=== PATIENT | male | born 1950 | race Caucasian/White ===

== ENCOUNTER 2018-06-14 19:27 | Observation (INO) | payer OTHER, MEDICARE ==
[~2018-06-14] VITALS: Ht 162.6 cm; Wt 92.5 kg
[~2018-06-14 19:27] MED LIST: AMIODARONE HCL200 MG PO; BYSTOLIC10 MG PO; PANTOPRAZOLE SO40 MG PO; XARELTO20 MG PO
[2018-06-14] MEDS ORDERED: METOPROLOL TARTRATE INJ 1 MG/ML VIAL IV PRN (19:45)
[2018-06-14 20:02] LABS: BASOPHILS # (AUTO) 0.1 (0.0-0.1); BASOPHILS % 0.7 % (0.0-1.0); EOSINOPHILS # (AUTO) 0.2 (0.0-0.4); EOSINOPHILS % 1.8 % (0.0-6.0); HEMATOCRIT 51.6 % (38.2-49.6); HEMOGLOBIN 17.5 g/dL (14.0-18.0); LYMPHOCYTES # (AUTO) 3.6 (1.0-3.2); LYMPHOCYTES % 41.8 % (18.0-39.1); MEAN CORPUSCULAR HEMOGLOBIN 31.5 pg (28-32); MEAN CORPUSCULAR HGB CONC 33.9 g/dL (31-35); MONOCYTES # (AUTO) 0.8 (0.2-0.8); MONOCYTES % 9.3 % (4.4-11.3); NEUTROPHILS # (AUTO) 3.9 (2.1-6.9); NEUTROPHILS % 45.9 % (38.7-80.0); PLATELET COUNT 230 x10e3/uL (140-360); RED BLOOD COUNT 5.55 x10e6/uL (4.3-5.7); RED CELL DISTRIBUTION WIDTH 13.2 % (11.7-14.4)
[2018-06-14] MEDS ORDERED: METOPROLOL SUCC50 MG PO (20:04)
[2018-06-14] MEDS ORDERED: DILTIAZEM HCL30 MG PO (20:04)
[2018-06-14] MEDS ORDERED: LOSARTAN POTASS50 MG PO (20:04)
[2018-06-14] MEDS ORDERED: XARELTO15 MG PO (20:04)
[2018-06-14] MEDS ORDERED: TIKOSYN125 MCG PO (20:04)
[2018-06-14] MEDS ORDERED: CARBAMAZEPINE100 M1 PO (20:04)
[2018-06-14 20:18] LABS: BILIRUBIN,URINE NEGATIVE (NEGATIVE); CLARITY,URINE CLEAR (CLEAR); COLOR,URINE YELLOW (YELLOW); KETONES,URINE NEGATIVE (NEGATIVE); LEUKOCYTE ESTERASE ,URINE NEGATIVE (NEGATIVE); NITRITE,URINE NEGATIVE (NEGATIVE); PROTEIN,URINE DIPSTICK NEGATIVE (NEGATIVE); URINE UROBILINOGEN 0.2 mg/dL (0.2 - 1)
[2018-06-14 20:23] LABS: INR 1.28; PROTHROMBIN TIME 17.1 seconds (11.9-14.5)
[2018-06-14 20:24] LABS: PARTIAL THROMBOPLASTIN TIME 41.8 seconds (23.8-35.5)
[2018-06-14 20:31] LABS: ALANINE AMINOTRANSFERASE 23 IU/L (0-55); ALBUMIN 4.6 g/dL (3.5-5.0); ALBUMIN/GLOBULIN RATIO 1.3 (0.8-2.0); ALKALINE PHOSPHATASE 113 IU/L (40-150); ANION GAP 17.1 mmol/L (8-16); BLOOD UREA NITROGEN 16 mg/dL (7-26); BUN/CREATININE RATIO 15 (6-25); CALCIUM 10.6 mg/dL (8.4-10.2); CARBON DIOXIDE 24 mmol/L (22-29); CHLORIDE 106 mmol/L (98-107); CREATINE KINASE 205 IU/L (30-200); EST GLOMERULAR FILTRATION RATE > 60 ML/MIN (60-); GLUCOSE 91 mg/dL (74-118); MAGNESIUM 2.3 MG/DL (1.3-2.1); POTASSIUM 4.1 mmol/L (3.5-5.1); SODIUM 143 mmol/L (136-145)
--- NOTE | 2018-06-14 20:33 | Diagnostic Imaging Report ---
EXAMINATION: Head CT without contrast. HISTORY:Dizziness and hypertension. COMPARISON:None. TECHNIQUE: Multidetector axial images were obtained from the foramen magnum to the vertex without contrast. The images were reconstructed using brain and bone algorithms. Thin section brain images were reformatted into coronal and sagittal planes. Dose modulation, iterative reconstruction, and/or weight based adjustment of the mA/kV was utilized to reduce the radiation dose to as low as reasonably achievable. Intravenous contrast: None IMAGE QUALITY: Acceptable. FINDINGS: Skull/scalp: No lytic or blastic. lesions. No surgical changes. Parenchyma: Nonspecific few, scattered supratentorial white matter hypodensity are likely related to small vessel ischemic changes. No acute hemorrhage, mass or acute major vascular territorial infarct. Arteries: No density suggestive of thrombosis. Dural sinuses: No abnormal density suggestive of thrombosis. Ventricles: No hydrocephalus or displacement. Extra-axial spaces: No abnormal density. Brain volume: Moderate generalized cerebral volume loss. Craniocervical junction: No mass, Chiari malformation, or basilar invagination. Sella: No mass. Paranasal/mastoid sinuses: Imaged portions unremarkable. IMPRESSION: No acute intracranial abnormality. Mild supratentorial white matter microvascular ischemic changes. Moderate generalized cerebral volume loss. Signed by: Dr. Ping Almodovar M.D. on 06/14/2018 8:31 PM
[2018-06-14 20:39] LABS: BACTERIA,URINE RARE /HPF; EPITHELIAL CELLS,URINE RARE /LPF; RBC,URINE 0-5 /HPF (0-5)
--- NOTE | 2018-06-14 20:43 | Diagnostic Imaging Report ---
CHEST SINGLE (PORTABLE), 06/14/2018 7:40 PM Technique: CHEST SINGLE (PORTABLE) Comparison: None available. Clinical history: Atrial fibrillation with artery are Findings: See Impression Impression: 1. Mildly enlarged cardiac silhouette, accentuated by portable technique. 2. Retrocardiac density which may reflect a hiatal hernia; consider follow-up upright PA and lateral. 3. No edema or consolidation. 4. No effusion or pneumothorax. 5. Right axillary clips Signed by: Dr Sabina Orlando MD on 06/14/2018 8:42 PM
[2018-06-14 20:51] LABS: THYROID STIMULATING HORMONE 1.033 uIU/mL (0.350-4.940)
[2018-06-14] MEDS ORDERED: ONDANSETRON HCL INJ 2 MG/ML VIAL IV PRN (21:45)
[2018-06-15] VITALS (7 sets, daily range): BP systolic 138–167; BP diastolic 72–83
[2018-06-15 06:06] LABS: CREATINE KINASE MB 2.4 ng/mL (0-5.0)
[2018-06-15] MEDS ORDERED: METOPROLOL SUCCINATE 50 MG TAB XL PO SCH (09:00)
[2018-06-15] MEDS ORDERED: LOSARTAN POTASSIUM 25 MG TAB PO SCH (09:00)
[2018-06-15] MEDS ORDERED: DOFETILIDE PO SCH (09:00)
[2018-06-15] MEDS ORDERED: RIVAROXABAN 15 MG TABLET PO SCH (09:00)
[2018-06-15] MEDS ORDERED: DILTIAZEM HCL 30 MG TAB PO SCH (09:00)
[2018-06-15] MEDS ORDERED: FAMOTIDINE 20 MG/2 ML VIAL IV SCH (09:00)
[2018-06-15 13:43] LABS: CREATINE KINASE 123 IU/L (30-200)
--- NOTE | 2018-06-15 15:15 | Discharge Summary ---
HISTORY OF PRESENT ILLNESS: Mr. Julian is an unusual 67-year-old man who was admitted on the evening of the with vertigo and findings of intermittent atrial fibrillation. HOSPITAL COURSE: The patient was monitored overnight where he remained in sinus rhythm, otherwise comfortable today. He is discharged to home to continue his previous medications and to follow up with his cooper apprentice, Dr. Em, this week in the office. DISCHARGE DIAGNOSES 1. Intermittent atrial fibrillation. 2. Vertigo. 3. Hypertension. 4. Hyperlipidemia. BARRIE BILLINGSLEY MD Job#: [id number]
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
== END 2018-06-15 15:30 | disposition home or self-care (01) ==
LOC: ER 19:27 → ERHOLD 21:59 → MED/SURG3 22:43
PROVIDERS: ADMIT Internal Medicine Cardiovascular Disease; ATTEND Internal Medicine Cardiovascular Disease
DX: I48.0 Paroxysmal atrial fibrillation (principal); R42 Dizziness and giddiness; Z79.01 Long term (current) use of anticoagulants; I10 Essential (primary) hypertension; E78.5 Hyperlipidemia, unspecified
CPT/HCPCS: 36415 ×2; 70450; 71045; 80053; 81001; 82550 ×2; 82553 ×2; 83735; 83880; 84443; 84484 ×2; 85025; 85610; 85730; 87086; 93005; 99284; G0378 ×2

== ENCOUNTER → 2019-03-02 | Outpatient (CLI) | payer OTHER ==
[~2019-03-02] MED LIST changes: +CARBAMAZEPINE100 M1 PO; +DILTIAZEM HCL30 MG PO; +LOSARTAN POTASS50 MG PO; +METOPROLOL SUCC50 MG PO; +TIKOSYN125 MCG PO; +XARELTO15 MG PO
--- NOTE | 2019-03-02 15:42 | Diagnostic Imaging Report ---
Exam: KUB - 2 views Clinical History: History of renal stone. Comparison: None. Findings: Nonobstructive bowel gas pattern. Bowel gas partially obscures visualization of the kidneys. No evidence of calcification overlying the kidneys or ureters. No acute osseous abnormality. Impression: No radiographic evidence of nephrolithiasis. Signed by: Dr. Khai Schulte MD on 03/02/2019 3:39 PM
== END ==
LOC: RAD 14:57
PROVIDERS: ATTEND Urology
DX: Z87.442 Personal history of urinary calculi (principal)
CPT/HCPCS: 74018